=== PATIENT | female | born 1970 | race Asian ===

== ENCOUNTER 2019-09-10 13:03 | Inpatient (IN) | payer MEDICAID, OTHER ==
[~2019-09-10] VITALS: Ht 154.9 cm; Wt 72.7 kg
--- NOTE | 2019-09-10 13:56 | NUR ---
seizure pads placed
[2019-09-10 14:03] LABS: BASOPHILS # (AUTO) 0.2 X10'3 (0-0.2); BASOPHILS % (AUTO) 0.5 % (0-1); EOSINOPHILS % (AUTO) 0.1 % (0-6); HEMATOCRIT 44.8 % (35.0-45.0); LYMPHOCYTES # (AUTO) 2.4 X10'3 (1.1-4.8); LYMPHOCYTES % (AUTO) 6.5 % (21-51); MEAN CORPUSCULAR HEMOGLOBIN 27.6 PG (27.0-31.0); MEAN CORPUSCULAR HGB CONC 33.5 g/dL (33.0-36.5); MEAN CORPUSCULAR VOLUME 82.3 FL (78-98); MEAN PLATELET VOLUME 7.8 FL (7.4-10.4); MONOCYTES # (AUTO) 2.7 X10'3 (0-0.9); MONOCYTES % (AUTO) 7.4 % (2-12); NEUTROPHILS # (AUTO) 31.2 X10'3 (1.8-7.7); NEUTROPHILS % (AUTO) 85.5 % (42-75); PLATELET COUNT 374 X10'3 (140-440); RED BLOOD COUNT 5.44 X10'6 (4.20-5.60); RED CELL DISTRIBUTION WIDTH 14.9 % (11.5-14.5)
[2019-09-10 14:07] LABS: WHITE BLOOD COUNT 36.4 X10'3 (4.5-11.0)
[2019-09-10] MEDS ORDERED: normal saline 1000ml 1,000 ML IV ONE ×2 (14:10→14:49)
[2019-09-10 14:14] LABS: ALANINE AMINOTRANSFERASE 20 U/L (12-78); ALBUMIN 3.9 G/DL (3.4-5.0); ALBUMIN/GLOBULIN RATIO 0.8 (1.1-1.5); ALKALINE PHOSPHATASE 103 IU/L (46-116); ANION GAP 8 (8-16); ASPARTATE AMINO TRANSFERASE 14 U/L (10-37); BILIRUBIN,TOTAL 1.8 MG/DL (0.1-1.0); BLOOD UREA NITROGEN 14 MG/DL (7-18); BUN/CREATININE RATIO 14.9 (6.6-38.0); CALCIUM 9.5 MG/DL (8.5-10.1); CHLORIDE 100 MMOL/L (99-107); CREATININE 0.94 MG/DL (0.40-0.90); GLUCOSE 106 MG/DL (70-104); POTASSIUM 3.4 MMOL/L (3.5-5.1); SODIUM 136 MMOL/L (135-145); TOTAL CARBON DIOXIDE 28.4 MMOL/L (24-32); TOTAL PROTEIN 8.7 G/DL (6.4-8.2); eGFR 64 ML/MIN
[2019-09-10] MEDS ORDERED: metoclopramide 5 mg/ml inj IV ONE (14:15)
[2019-09-10] MEDS ORDERED: CefTRIAXone/D5W-Rocephin 1gm 50 ML IV ONE (14:50)
[2019-09-10] MEDS ORDERED: CefTRIAXone 2gm/D5W 50ml 50 ML IV ONE (14:50)
[2019-09-10 14:56] LABS: PLATELET ESTIMATE NORMAL; TOTAL CELLS COUNTED 100
[2019-09-10] MEDS ORDERED: acetaminophen 325mg tablet PO ONE (15:15)
[2019-09-10 15:39] LABS: URINE HCG NEGATIVE (NEG)
[2019-09-10 15:42] LABS: CLARITY,URINE CLOUDY (Clear); COLOR,URINE YELLOW (Yellow); GLUCOSE, URINE NEGATIVE (Neg); KETONES,URINE TRACE mg/dl (Neg); LEUKOCYTE ESTERASE ,URINE MODERATE (Neg); NITRITES, URINE POSITIVE (Neg); OCCULT BLOOD,URINE TRACE-INTACT (Neg); PROTEIN,URINE 30 mg/dl (Neg); UROBILINOGEN,URINE 0.2 E.U/dL (0.2-1.0)
--- NOTE | 2019-09-10 15:48 | NUR ---
Rectal temperature of 100.8 measured per MD request. MD notified of result.
[2019-09-10 16:02] LABS: UA COLLECTION TYPE CLN CATCH MIDSTREAM
[2019-09-10 16:03] LABS: BACTERIA,URINE 3+ /HPF (Neg); SQUAMOUS EPITHELIAL CELL,UR MANY /LPF (FEW)
[2019-09-10 16:04] LABS: RBC,URINE 0-2 /HPF (0-2)
[2019-09-10] MEDS ORDERED: normal saline 1000ML IV soln IVB ONE (17:35)
[2019-09-10] MEDS ORDERED: HYDROcodone/acetaminophen 10/325mg tab PO PRN (18:25)
[2019-09-10] MEDS ORDERED: magnesium 4gm in 100ml NS 100 ML IV PRN (18:25)
[2019-09-10] MEDS ORDERED: ondansetron/PF 4mg/2ml inj IV PRN (18:25)
[2019-09-10] MEDS ORDERED: morphine 2 MG/ML inj. syringe IV PRN ×2 (18:25)
[2019-09-10] MEDS ORDERED: HYDROcodone/acetaminophen 5mg/325mg tablet PO PRN (18:25)
[2019-09-10] MEDS ORDERED: ipratropium/albuterol 3ml nebule NEB PRN (18:25)
[2019-09-10] MEDS ORDERED: mag hydrox/Alum hydrox/simeth 30ml oral suspension PO PRN (18:25)
[2019-09-10] MEDS ORDERED: magnesium hydroxide 30ml (MOM) UD suspension PO PRN (18:25)
[2019-09-10] MEDS ORDERED: diphenhydrAMINE 25mg capsule PO PRN (18:25)
[2019-09-10] MEDS ORDERED: potassium CL 10mEq/100ml bag 100 ML IV PRN ×2 (18:25)
[2019-09-10] MEDS ORDERED: magnesium 2GM in 50ml NS 50 ML IV PRN (18:25)
[2019-09-10] MEDS ORDERED: potassium Cl 20 mEq SR tablet PO PRN ×2 (18:25)
[2019-09-10] MEDS ORDERED: acetaminophen 325mg tablet PO PRN (18:25)
[2019-09-10] MEDS ORDERED: magnesium Cl slow-release 64mg tablet PO PRN (18:25)
[2019-09-10] MEDS: normal saline 1000ml 1,000 ML IV SCH (18:34)
[2019-09-10] MEDS ORDERED: methylPREDNISolone sod succ 125mg/2ml vial IV ONE (18:40)
[2019-09-10] MEDS: levoFLOXACIN-Levaquin 750MG/D5 150 ML IV SCH (18:51)
[2019-09-10 19:00] LABS: HEMOGLOBIN A1C 5.4 % (4.5-6.2)
[2019-09-10] MEDS ORDERED: levetiracetam inj 1,000 MG in normal saline 100ml IV soln 90 ML IV SCH (20:00)
[2019-09-10] MEDS: heparin, porcine 5000 units/ml vial SQ SCH (20:13)
[2019-09-10] MEDS: K and/or MAG REPLACEMENT MC SCH (20:23)
[2019-09-10] MEDS ORDERED: KEP500T PO (20:28)
[2019-09-10] MEDS: ipratropium/albuterol 3ml nebule NEB SCH (20:47)
--- NOTE | 2019-09-10 22:00 | NUR ---
Report received sparkle Price RN in ER. Waiting for the patient arrival on the unit.
[2019-09-10 23:32] LABS: CLARITY,URINE CLEAR (Clear); COLOR,URINE YELLOW (Yellow); GLUCOSE, URINE 100 mg/dl (Neg); KETONES,URINE NEGATIVE (Neg); LEUKOCYTE ESTERASE ,URINE SMALL (Neg); NITRITES, URINE POSITIVE (Neg); OCCULT BLOOD,URINE NEGATIVE (Neg); PROTEIN,URINE NEGATIVE (Neg); UROBILINOGEN,URINE 0.2 E.U/dL (0.2-1.0)
[2019-09-10 23:42] LABS: UA COLLECTION TYPE NON-SPECIFIED
[2019-09-10 23:46] LABS: URINE AMPHETAMINE SCREEN POSITIVE (Neg); URINE BARBITUATE SCREEN NEGATIVE (Neg); URINE BENZODIAZEPINES SCREEN NEGATIVE (Neg); URINE CANNABINOID SCREEN NEGATIVE (Neg); URINE COCAINE SCREEN NEGATIVE (Neg); URINE METHADONE SCREEN NEGATIVE (Neg); URINE OPIATE SCREEN POSITIVE (Neg); URINE PHENCYCLIDINE SCREEN NEGATIVE (Neg)
[2019-09-10 23:47] LABS: BACTERIA,URINE FEW /HPF (Neg); RBC,URINE 0-2 /HPF (0-2); SQUAMOUS EPITHELIAL CELL,UR MODERATE /LPF (FEW)
[2019-09-11] VITALS: BP 104/76
[2019-09-11] MEDS: methylPREDNISolone sod succ/PF 40mg inj. IV SCH ×3 (00:26→19:54)
[2019-09-11] MEDS: normal saline 1000ml 1,000 ML IV SCH ×3 (00:27→22:16)
[2019-09-11] MEDS: ipratropium/albuterol 3ml nebule NEB SCH ×4 (04:30→20:29)
[2019-09-11] MEDS: acetaminophen 325mg tablet PO PRN ×3 (04:42→22:13)
[2019-09-11] MEDS ORDERED: AMLO2.5T2 PO (04:59)
[2019-09-11 05:26] LABS: BASOPHILS # (AUTO) 0.1 X10'3 (0-0.2); BASOPHILS % (AUTO) 0.3 % (0-1); EOSINOPHILS % (AUTO) 0 % (0-6); HEMATOCRIT 39.3 % (35.0-45.0); HEMOGLOBIN 13.3 g/dl (12.0-16.0); LYMPHOCYTES # (AUTO) 1.9 X10'3 (1.1-4.8); LYMPHOCYTES % (AUTO) 6.2 % (21-51); MEAN CORPUSCULAR HEMOGLOBIN 28.1 PG (27.0-31.0); MEAN CORPUSCULAR HGB CONC 33.7 g/dL (33.0-36.5); MEAN CORPUSCULAR VOLUME 83.3 FL (78-98); MONOCYTES # (AUTO) 0.3 X10'3 (0-0.9); NEUTROPHILS # (AUTO) 27.8 X10'3 (1.8-7.7); NEUTROPHILS % (AUTO) 92.5 % (42-75); PLATELET COUNT 339 X10'3 (140-440); RED BLOOD COUNT 4.72 X10'6 (4.20-5.60); RED CELL DISTRIBUTION WIDTH 14.9 % (11.5-14.5)
[2019-09-11 05:43] LABS: ALANINE AMINOTRANSFERASE 16 U/L (12-78); ALBUMIN/GLOBULIN RATIO 0.7 (1.1-1.5); ALKALINE PHOSPHATASE 81 IU/L (46-116); ANION GAP 6 (8-16); ASPARTATE AMINO TRANSFERASE 10 U/L (10-37); BLOOD UREA NITROGEN 19 MG/DL (7-18); BUN/CREATININE RATIO 22.1 (6.6-38.0); CALCIUM 8.6 MG/DL (8.5-10.1); CHLORIDE 105 MMOL/L (99-107); CHOL/HDL RATIO 2.6 (0.00-4.99); CHOLESTEROL 189 MG/DL (0-200); CREATININE 0.86 MG/DL (0.40-0.90); GLUCOSE 150 MG/DL (70-104); HDL CHOLESTEROL 73 MG/DL (35-60); LDL CHOLESTEROL 108 MG/DL (50-100); MAGNESIUM 1.9 MG/DL (1.5-2.4); PHOSPHORUS 2.7 MG/DL (2.3-4.5); POTASSIUM 3.7 MMOL/L (3.5-5.1); SODIUM 139 MMOL/L (135-145); TOTAL CARBON DIOXIDE 28.2 MMOL/L (24-32); TOTAL PROTEIN 7.5 G/DL (6.4-8.2); TRIGLYCERIDES 42 MG/DL (20-135); eGFR 70 ML/MIN
--- NOTE | 2019-09-11 06:13 | NUR ---
Report given to Tina SLOAN. Patient is resting and complaining of headache and pain medication was given per doctor's order. WBC elavated at 30.0 and MD notified.
[2019-09-11 06:16] LABS: TOTAL CELLS COUNTED 100
[2019-09-11 06:17] LABS: PLATELET ESTIMATE NORMAL
--- NOTE | 2019-09-11 06:51 | NUR ---
Patient in room [facility]. I have received report from Josephine SLOAN and had the opportunity to ask questions and assume patient care.
[2019-09-11 08:00] VITALS: BP 120/70
[2019-09-11] MEDS: K and/or MAG REPLACEMENT MC SCH ×2 (08:00→19:44)
[2019-09-11] MEDS: levetiracetam-NS 1000mg/100ml 100 ML IV SCH ×2 (09:06→19:53)
[2019-09-11] MEDS: heparin, porcine 5000 units/ml vial SQ SCH ×2 (09:06→19:53)
[2019-09-11] MEDS: levoFLOXACIN-Levaquin 750MG/D5 150 ML IV SCH (09:32)
[2019-09-11 11:00] VITALS: BP 122/78
[2019-09-11 18:00] VITALS: BP 113/75
--- NOTE | 2019-09-11 18:30 | NUR ---
Patient in room [facility]. I have received report from Germania SLOAN and had the opportunity to ask questions and assume patient care.
--- NOTE | 2019-09-11 18:55 | NUR ---
Problems reprioritized. Patient report given, questions answered & plan of care reviewed with Prudence RN.
[2019-09-11] MEDS: lactobacillus rhamnosus 10,000 MMU CELLS/CAPSULE PO SCH (19:54)
[2019-09-12] VITALS: BP 115/70
[2019-09-12] MEDS: ipratropium/albuterol 3ml nebule NEB SCH ×4 (02:45→20:39)
[2019-09-12 05:31] LABS: ALANINE AMINOTRANSFERASE 15 U/L (12-78); ALBUMIN 2.8 G/DL (3.4-5.0); ALBUMIN/GLOBULIN RATIO 0.7 (1.1-1.5); ALKALINE PHOSPHATASE 91 IU/L (46-116); ANION GAP 8 (8-16); ASPARTATE AMINO TRANSFERASE 7 U/L (10-37); BILIRUBIN,TOTAL 0.2 MG/DL (0.1-1.0); BLOOD UREA NITROGEN 23 MG/DL (7-18); BUN/CREATININE RATIO 26.4 (6.6-38.0); CALCIUM 8.7 MG/DL (8.5-10.1); CHLORIDE 108 MMOL/L (99-107); CREATININE 0.87 MG/DL (0.40-0.90); GLUCOSE 171 MG/DL (70-104); MAGNESIUM 2.1 MG/DL (1.5-2.4); PHOSPHORUS 2.7 MG/DL (2.3-4.5); POTASSIUM 4.1 MMOL/L (3.5-5.1); SODIUM 143 MMOL/L (135-145); TOTAL CARBON DIOXIDE 27.3 MMOL/L (24-32); TOTAL PROTEIN 7.1 G/DL (6.4-8.2); eGFR 69 ML/MIN
[2019-09-12] MEDS: normal saline 1000ml 1,000 ML IV SCH (05:50)
[2019-09-12 05:51] LABS: BASOPHILS % (AUTO) 0.1 % (0-1); EOSINOPHILS % (AUTO) 0 % (0-6); HEMATOCRIT 37.2 % (35.0-45.0); HEMOGLOBIN 12.3 g/dl (12.0-16.0); LYMPHOCYTES # (AUTO) 1.5 X10'3 (1.1-4.8); LYMPHOCYTES % (AUTO) 5.7 % (21-51); MEAN CORPUSCULAR HEMOGLOBIN 27.8 PG (27.0-31.0); MEAN CORPUSCULAR HGB CONC 33.1 g/dL (33.0-36.5); MEAN CORPUSCULAR VOLUME 84.2 FL (78-98); MEAN PLATELET VOLUME 8.5 FL (7.4-10.4); MONOCYTES # (AUTO) 1.2 X10'3 (0-0.9); MONOCYTES % (AUTO) 4.4 % (2-12); NEUTROPHILS # (AUTO) 24.3 X10'3 (1.8-7.7); NEUTROPHILS % (AUTO) 89.8 % (42-75); PLATELET COUNT 373 X10'3 (140-440); RED BLOOD COUNT 4.42 X10'6 (4.20-5.60); RED CELL DISTRIBUTION WIDTH 15.1 % (11.5-14.5)
--- NOTE | 2019-09-12 06:30 | NUR ---
Patient in room [facility]. I have received report from WAYLON SLOAN and had the opportunity to ask questions and assume patient care.
[2019-09-12 06:58] VITALS: BP 154/90
[2019-09-12 07:37] LABS: ANISOCYTOSIS 1+; MICROCYTOSIS 1+; PLATELET ESTIMATE NORMAL; TOTAL CELLS COUNTED 100
[2019-09-12] MEDS: K and/or MAG REPLACEMENT MC SCH ×2 (08:00→19:57)
[2019-09-12] MEDS: methylPREDNISolone sod succ/PF 40mg inj. IV SCH ×2 (08:29→20:00)
[2019-09-12] MEDS: levetiracetam-NS 1000mg/100ml 100 ML IV SCH ×2 (08:29→20:03)
[2019-09-12] MEDS: acetaminophen 325mg tablet PO PRN ×3 (08:32→22:58)
[2019-09-12] MEDS: lactobacillus rhamnosus 10,000 MMU CELLS/CAPSULE PO SCH ×2 (09:10→20:01)
[2019-09-12] MEDS: levoFLOXACIN-Levaquin 750MG/D5 150 ML IV SCH (09:13)
[2019-09-12] MEDS: heparin, porcine 5000 units/ml vial SQ SCH ×2 (09:13→20:01)
[2019-09-12 11:22] VITALS: BP 154/92
--- NOTE | 2019-09-12 14:58 | NUR ---
contacted case management with this message. "Surg re:[id number] Dhaval, patient is [employer] and a women Dominique [phone] is calling and her physician had to approve her stay with [facility], just to make sure you are aware of this patient and you could follow up with her thanks Albert"
[2019-09-12 18:00] VITALS: BP 153/79
--- NOTE | 2019-09-12 19:01 | NUR ---
Patient in room [facility]. I have received report from PONCHO SLOAN and had the opportunity to ask questions and assume patient care.
--- NOTE | 2019-09-12 19:30 | NUR ---
Student documentation: I have reviewed and agree with all interventions, assessments performed and documented by SN Marlee.
[2019-09-13] VITALS: BP 145/80
[2019-09-13] MEDS: normal saline 1000ml 1,000 ML IV SCH (01:26)
[2019-09-13] MEDS: ipratropium/albuterol 3ml nebule NEB SCH ×2 (03:40→09:24)
[2019-09-13 05:33] LABS: ALANINE AMINOTRANSFERASE 20 U/L (12-78); ALBUMIN 2.9 G/DL (3.4-5.0); ALBUMIN/GLOBULIN RATIO 0.7 (1.1-1.5); ALKALINE PHOSPHATASE 85 IU/L (46-116); ANION GAP 7 (8-16); ASPARTATE AMINO TRANSFERASE 14 U/L (10-37); BILIRUBIN,TOTAL 0.3 MG/DL (0.1-1.0); BLOOD UREA NITROGEN 18 MG/DL (7-18); BUN/CREATININE RATIO 23.7 (6.6-38.0); CALCIUM 8.8 MG/DL (8.5-10.1); CHLORIDE 105 MMOL/L (99-107); CREATININE 0.76 MG/DL (0.40-0.90); GLUCOSE 126 MG/DL (70-104); PHOSPHORUS 4.5 MG/DL (2.3-4.5); POTASSIUM 4.1 MMOL/L (3.5-5.1); SODIUM 141 MMOL/L (135-145); TOTAL CARBON DIOXIDE 28.7 MMOL/L (24-32); TOTAL PROTEIN 7.3 G/DL (6.4-8.2); eGFR 81 ML/MIN
[2019-09-13 05:36] LABS: BASOPHILS % (AUTO) 0.2 % (0-1); EOSINOPHILS % (AUTO) 0 % (0-6); HEMATOCRIT 37.6 % (35.0-45.0); HEMOGLOBIN 12.4 g/dl (12.0-16.0); LYMPHOCYTES # (AUTO) 1.6 X10'3 (1.1-4.8); LYMPHOCYTES % (AUTO) 7.6 % (21-51); MEAN CORPUSCULAR HEMOGLOBIN 27.7 PG (27.0-31.0); MEAN CORPUSCULAR HGB CONC 33.1 g/dL (33.0-36.5); MEAN CORPUSCULAR VOLUME 83.7 FL (78-98); MEAN PLATELET VOLUME 8.5 FL (7.4-10.4); MONOCYTES # (AUTO) 0.7 X10'3 (0-0.9); MONOCYTES % (AUTO) 3.2 % (2-12); NEUTROPHILS # (AUTO) 18.6 X10'3 (1.8-7.7); PLATELET COUNT 381 X10'3 (140-440); RED BLOOD COUNT 4.49 X10'6 (4.20-5.60); RED CELL DISTRIBUTION WIDTH 15.2 % (11.5-14.5); WHITE BLOOD COUNT 20.9 X10'3 (4.5-11.0)
--- NOTE | 2019-09-13 06:20 | NUR ---
Problems reprioritized. Patient report given, questions answered & plan of care reviewed with Albert RN.
--- NOTE | 2019-09-13 06:30 | NUR ---
Patient in room [facility]. I have received report from Josephine SLOAN and had the opportunity to ask questions and assume patient care.
[2019-09-13 07:48] VITALS: BP 168/100
[2019-09-13] MEDS: K and/or MAG REPLACEMENT MC SCH (08:00)
[2019-09-13] MEDS: methylPREDNISolone sod succ/PF 40mg inj. IV SCH (08:21)
[2019-09-13] MEDS: lactobacillus rhamnosus 10,000 MMU CELLS/CAPSULE PO SCH (08:21)
[2019-09-13] MEDS: heparin, porcine 5000 units/ml vial SQ SCH (08:21)
[2019-09-13] MEDS: levetiracetam-NS 1000mg/100ml 100 ML IV SCH (08:21)
[2019-09-13] MEDS: levoFLOXACIN-Levaquin 750MG/D5 150 ML IV SCH (08:53)
[2019-09-13] MEDS ORDERED: LACT1CAP26 PO (10:01)
[2019-09-13] MEDS ORDERED: LEVO750T46 PO (10:01)
[2019-09-13] MEDS ORDERED: PRED10TA23 PO (10:01)
[2019-09-13] MEDS ORDERED: ALBU8.5H8 INH (10:01)
[2019-09-13] MEDS: acetaminophen 325mg tablet PO PRN (10:21)
--- NOTE | 2019-09-13 11:40 | NUR ---
Patient discharged into the care of her family at this time, patients sister was in the room during discharge teaching. Patient was educated on new medication at this time. Patient medication was sent to pharmacy at this time. Patient IV was taken out at discharge as well. Canula was whole and intact upon removal. Patient stated she everything at discharge and was taken to lobby via wheel chair.
== END 2019-09-13 11:51 | disposition home or self-care (01) | DRG 871 ==
LOC: ER 13:03 → ED HOLD 18:37 → SUR 3N 22:07
PROVIDERS: ADMIT Family Medicine; ATTEND Family Medicine
DX: A41.9 Sepsis, unspecified organism (principal); J18.9 Pneumonia, unspecified organism; E87.2 Acidosis; J44.0 Chronic obstructive pulmonary disease with (acute) lower respiratory infection; J44.1 Chronic obstructive pulmonary disease with (acute) exacerbation; N39.0 Urinary tract infection, site not specified; F15.10 Other stimulant abuse, uncomplicated; F17.200 Nicotine dependence, unspecified, uncomplicated; G40.909 Epilepsy, unspecified, not intractable, without status epilepticus; I10 Essential (primary) hypertension; Z80.1 Family history of malignant neoplasm of trachea, bronchus and lung
CPT/HCPCS: 36415; 70450; 71045; 71250; 80053; 80061; 80305; 81001; 81025; 82948; 83036; 83605; 83735; 84100; 84145; 84484; 85025; 87040; 87081; 87088; 87502; 87503; 93005; 93306; 94640; 94760; 96365; 96375; 99285; G0378; J0696; J1644; J1953; J1956; J2765; J2920; J2930; J7030

== ENCOUNTER 2023-07-07 13:26 | Emergency (ER) | payer MEDICAID ==
[~2023-07-07] VITALS: Ht 154.9 cm; Wt 90.0 kg
[~2023-07-07 13:26] MED LIST: ALBU8.5H17 INH; AMLO2.5T2 PO; KEP500T PO; LACT1CAP26 PO
[2023-07-07 14:48] LABS: BASOPHILS # (AUTO) 0.1 X10'3 (0-0.2); BASOPHILS % (AUTO) 0.6 % (0-1); EOSINOPHILS # (AUTO) 0.8 X10'3 (0-0.9); EOSINOPHILS % (AUTO) 8.2 % (0-6); HEMATOCRIT 40.7 % (35.0-45.0); HEMOGLOBIN 13.4 g/dl (12.0-16.0); LYMPHOCYTES % (AUTO) 31.9 % (21-51); MEAN CORPUSCULAR HEMOGLOBIN 29.3 PG (27.0-31.0); MEAN CORPUSCULAR VOLUME 88.6 FL (78-98); MEAN PLATELET VOLUME 8.5 FL (7.4-10.4); MONOCYTES # (AUTO) 0.6 X10'3 (0-0.9); MONOCYTES % (AUTO) 6.5 % (2-12); NEUTROPHILS % (AUTO) 52.8 % (42-75); PLATELET COUNT 352 X10'3 (140-440); RED BLOOD COUNT 4.59 X10'6 (4.20-5.60); RED CELL DISTRIBUTION WIDTH 13.8 % (11.5-14.5); WHITE BLOOD COUNT 9.4 X10'3 (4.5-11.0)
[2023-07-07 15:04] LABS: PRO BRAIN NATRIURETIC PEPTIDE 88 PG/ML (0-125)
[2023-07-07 15:29] LABS: C-REACTIVE PROTEIN 0.68 MG/DL (0.0-0.5)
[2023-07-07 15:35] LABS: SYPHILIS SCREENING TEST POC NEGATIVE (Negative)
[2023-07-07 17:01] VITALS: BP 148/97; PULSE 76; RESP 19; TEMP 98.2; O2SAT 93
== END 2023-07-07 17:09 | disposition home or self-care (01) ==
LOC: ER 13:27
DX: J06.9 Acute upper respiratory infection, unspecified (principal); B86 Scabies
CPT/HCPCS: 36415; 71045; 83880; 84484; 85025; 85651; 86140; 87811; 93005; 99285

== ENCOUNTER 2023-07-18 15:12 | Emergency (ER) | payer MEDICAID ==
[~2023-07-18] VITALS: Ht 154.9 cm; Wt 90.9 kg
[2023-07-18 15:18] VITALS: BP 120/81; PULSE 88; RESP 16; TEMP 98; O2SAT 95
[2023-07-18] MEDS ORDERED: PRED20TA PO (16:15)
[2023-07-18] MEDS ORDERED: PERM60CR19 TOP (16:15)
== END 2023-07-18 17:09 | disposition home or self-care (01) ==
LOC: ER 15:12
DX: R21 Rash and other nonspecific skin eruption (principal); I10 Essential (primary) hypertension; Z79.899 Other long term (current) drug therapy
CPT/HCPCS: 99283